=== PATIENT | female | born 1980 | race Two or more races ===

== ENCOUNTER 2021-05-09 01:02 | Emergency (ER) | payer SELFPAY ==
[~2021-05-09] VITALS: Ht 172.7 cm; Wt 73.0 kg
[2021-05-09 01:06] VITALS: BP 128/78
== END 2021-05-09 01:33 | disposition left against medical advice (07) ==
LOC: ER 01:02
DX: Z53.21 Procedure and treatment not carried out due to patient leaving prior to being seen by health care provider (principal)